=== PATIENT | female | born 1995 | race Caucasian/White ===

== ENCOUNTER 2022-04-04 16:19 | Emergency (ER) | payer MEDICAID, SELFPAY ==
[2022-04-04 16:30] VITALS: BP 100/68; PULSE 78; RESP 18; TEMP 37; O2SAT 98; BMI 26.6
[2022-04-04 18:07] VITALS: BP 100/68; PULSE 78; RESP 18; TEMP 37; O2SAT 98; BMI 26.5
[2022-04-04 18:13] LABS: Apearance,Urine Cloudy (Clear); Color,Urine Yellow (Yellow)
[2022-04-04 18:14] LABS: Bilirubin,Urine Negative (Negative); Blood, Urine Negative (Negative); Glucose,Urine (UA) Negative (Negative); Ketones,Urine Negative (Negative); Protein,Urine Negative (Negative); Specific Gravity, Urine 1.025 (1.005-1.030); UTC Leukocyte Esterase,Urine 3+ (Negative); UTC Nitrate,Urine Positive (Negative); Urobilinogen,Urine 0.2 EU/dl (0.2)
--- NOTE | 2022-04-04 18:17 | EXP.UTC ---
Discharge Plan Disposition Patient Disposition: Home, Self-Care Condition: Good Prescriptions Prescriptions: New Lactobacillus acidophilus Capsule 1 cap PO BID Qty: 60 0RF cephalexin [cephalexin] 500 mg capsule 500 mg PO Q6H 10 Days Qty: 20 0RF Referrals Follow up/Referrals: Sherman Sheffield MD [Staff Physician] - See instructions Provider,MD Justen [Primary Care Provider] - See instructions Activity Restrictions/Add. Instructions Additional Instructions/Restrictions: The urine lab test will test for gonorrhea, chlamydia, and vaginal trichomonas. Pleaes follow up with your primary care provider for the results of these in 3 to 4 days. I sent in a prescription for probiotics that should help to balance your vaginal ph over the longwall headgate operator. You could eat yogurt regularly to do the same thing. I put in a referral to the harness cutter here. Please follow up there or with your harness cutter of choice. Follow up with your primary care physician. GO TO THE ER FOR ANY LIFE THREATENING OR WORSENING CONCERNS Clinical Impressions Clinical Impression: Vaginal discharge Stand Alone Forms Stand Alone Forms: Work/School Release Instructions Patient Instructions: DI for Vaginal Discharge Discharge ED Provider: Miles Mcdonald [facility] General Stated complaint: problems in privat parts ? Mode of Arrival: Ambulatory Source of Information: Patient Limitations: No Limitations Time Seen by Provider: 04/04/22 18:17 Description of Symptoms (Recalled from Triage Doc. by RN): pt comes in for std check. pt states her ph is off, but she does not want a pelvic exam, just blood drawn and urine. HEENT Symptoms (Recalled from RN notes): No Resp Symptoms (Recalled from RN notes): No Skin Symptoms (Recalled from RN notes): No MS Symptoms (Recalled from RN notes): No Functional Status (Recalled from RN notes): n/a History of Present Illness Provider Complaint: She is here with concerns of her vaginal ph being off . She has used a ph testing kit and it told it the ph was wrong. She also has some vaginal discharge. Related Data Previous Rx's Medication Instructions Recorded Lactobacillus acidophilus 1 cap PO BID #60 caps 04/04/22 cephalexin 500 mg capsule 500 mg PO Q6H 10 days #20 caps 04/04/22 Allergies Allergy/AdvReac Type Severity Reaction Status Date / Time No Known Allergies Allergy Verified 04/04/22 18:06 Worker's Comp Is this a Worker's Comp case?: No PFSH PFSH Social History Smoking Status: Never smoker alcohol intake: never current occupational status: employed Travel in the last 8 weeks: None ROS Obtained: Yes All systems reviewed & no additional complaints except as documented Constitutional Constitutional: Reports system reviewed and no additional complaints, except as documented, Denies chills and Denies fever(s) Eyes Eyes: Denies eye discharge ENT Ears, Nose, Mouth, and Throat: Denies dysphagia, Denies sore throat and Denies throat swelling Cardiovascular Cardiovascular: Denies chest pain and Denies dyspnea Respiratory Respiratory: Denies chest congestion, Denies cough and Denies dyspnea Gastrointestinal Gastrointestingal: Denies abdominal pain, constipation, diarrhea, dysphagia, nausea or vomiting Musculoskeletal Musculoskeletal: Denies arthralgias Integumentary/Breasts Skin/Breast: Denies rash Neurologic Neurologic: Denies paresthesias Allergic/Immunologic Allergic/Immunologic: Denies throat swelling Physical Exam General General appearance: alert and in no apparent distress Head Head exam: atraumatic, normocephalic and normal inspection Eye Eye exam: Present normal appearance, PERRL and EOMI ENT ENT exam: Present normal exam, normal oropharynx, mucous membranes moist, TM's normal bilaterally and normal external ear exam Neck Neck exam: Present normal inspection, full ROM and trachea midline; Absent meningismus or lymphad
[2022-04-04 19:06] VITALS: BP 100/68; PULSE 78; RESP 18; TEMP 37
[2022-04-06 11:12] LABS: Rapid Plasma Reagin Ab Titer Non Reactive (NonRea<1:1)
[2022-04-07 05:08] LABS: Neisseria gonorrhoeae, NAA Negative (Negative)
[2022-04-09 08:48] LABS: HSV-1 DNA Negative (Negative); HSV-2 DNA Negative (Negative)
[2022-04-17 21:13] LABS: HIV Screen 4th Generation wRfx Non Reactive; Hep A Ab, IgM Negative; Hepatitis B Core Antibody IgM Negative; Hepatitis C Antibody <0.1
== END 2022-04-04 19:07 | disposition home or self-care (01) ==
LOC: ER 16:45 → UTC 16:49
PROVIDERS: Emergency Provider Nurse Practitioner Family
DX: N39.0 Urinary tract infection, site not specified (principal); N89.8 Other specified noninflammatory disorders of vagina
CPT/HCPCS: 80074; 81003; 86592; 86703; 87086; 87088; 87186; 87491; 87529; 87591; 99212; G0432; G0463